=== PATIENT | female | born 1975 | race Caucasian/White ===

== ENCOUNTER 2019-01-09 05:29 | Day surgery (SDC) | payer OTHER ==
[2019-01-03 11:45] LABS: HEMATOCRIT 44.8 % (36.0-47.0); HEMOGLOBIN 15.4 g/dL (12.0-15.5); MEAN CORPUSCULAR HEMOGLOBIN 30.1 pg (27.0-33.4); MEAN CORPUSCULAR HGB CONC 34.3 g/dL (32.0-36.0); MEAN CORPUSCULAR VOLUME 88 fl (80-97); PLATELET COUNT 368 10^3/uL (150-450); RED CELL DISTRIBUTION WIDTH 13.5 % (11.5-14.0); WHITE BLOOD COUNT 9.7 10^3/uL (4.0-10.5)
[2019-01-03 11:46] LABS: APPEARANCE,URINE CLEAR; BILIRUBIN,URINE NEGATIVE (NEGATIVE); COLOR,URINE YELLOW; GLUCOSE, URINE NEGATIVE (NEGATIVE); KETONES,URINE NEGATIVE (NEGATIVE); LEUKOCYTE ESTERASE,URINE NEGATIVE (NEGATIVE); NITRITE,URINE NEGATIVE (NEGATIVE); PROTEIN,URINE NEGATIVE (NEGATIVE); UROBILINOGEN,URINE NEGATIVE mg/dL (<2.0)
[2019-01-03 12:11] LABS: ALBUMIN 4.9 g/dL (3.5-5.0); ALKALINE PHOSPHATASE 87 U/L (38-126); ANION GAP 12 (5-19); ASPARTATE AMINO TRANSFERASE 24 U/L (14-36); BILIRUBIN,DIRECT 0.1 mg/dL (0.0-0.4); BILIRUBIN,TOTAL 0.6 mg/dL (0.2-1.3); BLOOD UREA NITROGEN 14 mg/dL (7-20); CARBON DIOXIDE 28 mmol/L (22-30); CHLORIDE 99 mmol/L (98-107); GLUCOSE 87 mg/dL (75-110); POTASSIUM 4.9 mmol/L (3.6-5.0); TOTAL PROTEIN 8.2 g/dL (6.3-8.2)
[~2019-01-09 05:29] MED LIST: CEFAZOLIN SODIUM 2 GM in DEXTROSE 5%-WATER 100 ML IV PRN; LACTATED RINGERS 1000 ML IV PRN; LIDOCAINE 0.5% INJ-PF (5 MG/ML) 50 ML SDV SUBCUT PRN
[2019-01-09] MEDS ORDERED: MIDAZOLAM 2 MG/2 ML INJ ONE (06:37)
[2019-01-09] MEDS ORDERED: FENTANYL CITRATE INJ/PF 250 MCG/5 ML AMPULE ONE (06:37)
[2019-01-09] MEDS ORDERED: PROPOFOL INJ 200 MG/20 ML VIAL IV ONE (06:37)
[2019-01-09] MEDS ORDERED: BUPIVACAINE HCL 0.25 % INJ/PF (2.5 MG/1 ML) 30 ML VIAL ONE (07:06)
[2019-01-09] MEDS ORDERED: FENTANYL CITRATE INJ/PF 100 MCG/2 ML AMPUL IV PRN ×3 (07:44)
[2019-01-09] MEDS ORDERED: MEPERIDINE HCL/PF INJ 25 MG/1 ML DISP.SYRIN IV PRN (07:44)
[2019-01-09] MEDS ORDERED: DIPHENHYDRAMINE HCL 50 MG/ML VIAL IV PRN (07:44)
[2019-01-09] MEDS ORDERED: PROMETHAZINE HCL INJ 25 MG/1 ML VIAL IV PRN ×2 (07:44)
[2019-01-09] MEDS ORDERED: OXYCODONE-ACETAMINOPHEN 5-325 MG TABLET PO PRN ×3 (07:44→10:37)
[2019-01-09] MEDS ORDERED: LIDOCAINE 2% INJ (20 MG/ML) 20 ML MDV ONE (08:03)
[2019-01-09] MEDS ORDERED: LIDOCAINE 1% INJ-PF (10 MG/ML) 30 ML SDV ONE (08:03)
--- NOTE | 2019-01-09 09:37 | Operative Report ---
Operative Report DATE OF SURGERY: 01/09/19 PREOPERATIVE DIAGNOSIS: Menorrhagia and prior abdominal surgery POSTOPERATIVE DIAGNOSIS: Same plus adhesions OPERATION: Robotic assisted LAVH and bilateral salpingectomy SURGEON: [place] ANESTHESIA: GA TISSUE REMOVED OR ALTERED: Uterus and tubes COMPLICATIONS: None ESTIMATED BLOOD LOSS: Approximately 400 cc PROCEDURE: Patient was placed in a dorsal lithotomy position prepped draped sterile fashion. Speculum placed in cervix visualized and grasped with a single-tooth tenaculum and sounded to a depth of 12 cm. The uterine manipulator was placed per protocol and the speculum was removed. Attention was turned to the abdomen where a supra umbilical incision was made with introduction of the trocar insufflation of the abdomen introduction of the laparoscope. The abdomen appeared to have adhesions from the omentum to the anterior abdominal wall and from the bladder to the anterior portion of the uterus. A second puncture was made lateral to the first and a 5 was introduced a third lateral on the right and a 5 trocar was introduced and a accessory port above the superior iliac crest on the right. The robot was then docked in usual fashion. Using monopolar and bipolar cautery the adhesions from the omentum to the anterior abdominal wall were taken down with sharp dissection. The left tube was then removed by grasping it with a grasper and dividing the mesial salpinx and to the area of the ovarian ligament. Procedure was repeated on the right. The broad ligament was then divided until the anterior uterine artery on the left. Repeated on the right. Adhesions from the bladder to the anterior portion of the uterus were taken down with sharp dissection and bipolar cautery. There were multiple adhesions from the bladder to the lower uterine segment. These were dissected carefully but at this point the ring could not be identified and the laparoscopic approach was then abandoned. The laparoscope was removed the robot was undocked and attention was turned to the pelvis. Speculum was placed in the cervix visualized the uterine manipulator was removed. Cervix was then grasped with a Marcio thyroid clamp. Posterior cul-de-sac was entered sharp dissection posterior parietoperitoneum sutured to the posterior cuff with 2-0 Vicryl. Left uterosacral clamped divided suture 2-0 Vicryl. On the right. She will visually circumscribed and anterior parietoperitoneum was entered with sharp dissection. Serial clamps were each of the broad ligament with each pedicle being clamped divided and suture 2-0 Vicryl. This was continued to level where the above incisions were encountered in the uterus and tubes were removed. The pedicles were inspected and hemostasis was noted. The cuff was then closed using 0 Vicryl running fashion. And then interrupted sutures of 2-0 Vicryl. She was turned back to the abdomen where he was reinflated and the camera was placed into the abdomen. The cuff appeared to be sewn and approximated well. There was no areas of bleeding noted. The was irrigated with normal saline hemostasis was noted. Laparoscope was removed the abdomen deflated and trocar sleeves removed the supraumbilical an accessory port incision was closed with 0 Vicryl for the fascia and 4-0 Vicryl subcu. The 2 puncture wounds were closed with subcu 4-0 Vicryl. And Dermabond was placed over the closures. The patient's urine remained clear throughout the procedure she was taken recovery in good condition.
[2019-01-09] MEDS ORDERED: MORPHINE SULFATE 10 MG/ML INJ IM PRN (10:36)
[2019-01-09 12:20] VITALS: BP 137/70
[2019-01-09] MEDS ORDERED: GLYCOPYRROLATE 1 MG/5 ML VIAL ONE (13:20)
[2019-01-09] MEDS ORDERED: ROCURONIUM BROMIDE INJ 50 MG/5 ML VIAL IV ONE (13:20)
[2019-01-09] MEDS ORDERED: ONDANSETRON HCL INJ/PF 4 MG/2 ML SDV ONE (13:20)
[2019-01-09] MEDS ORDERED: DEXAMETHASONE SOD PHOSPHATE INJ 4 MG/1 ML VIAL ONE (13:20)
[2019-01-09] MEDS ORDERED: NEOSTIGMINE METHYLSULFATE 10 MG/10 ML VIAL ONE (13:20)
[2019-01-09] MEDS ORDERED: LIDOCAINE 2% INJ-PF (20 MG/ML) 2 ML AMPUL ONE (13:20)
[2019-01-09] MEDS ORDERED: IBUPROFEN 800 MG TABLET PO SCH (14:00)
== END 2019-01-09 14:57 | disposition home or self-care (01) ==
LOC: OROUT 05:29 → 2N 10:25 → OROUT 14:55
PROVIDERS: ATTEND Obstetrics & Gynecology Gynecology
DX: N92.0 Excessive and frequent menstruation with regular cycle (principal); N73.6 Female pelvic peritoneal adhesions (postinfective); N72 Inflammatory disease of cervix uteri; N88.8 Other specified noninflammatory disorders of cervix uteri
CPT/HCPCS: 58552; S2900; 36415; 80053; 81001; 81025; 840; 84703; 85027; 86850; 86900; 86901; 88307; J0690; J1100; J2250; J2405; J2704; J2710; J3010; J3490; J7060